=== PATIENT | male | born 1990 | race Caucasian/White ===

== ENCOUNTER 2017-08-06 22:50 | Emergency (ER) | payer SELFPAY ==
[~2017-08-06] VITALS: Ht 172.7 cm; Wt 79.4 kg
[2017-08-06] MEDS ORDERED: ANAPROX DS550 MG PO (23:56)
== END 2017-08-07 00:32 | disposition home or self-care (01) ==
LOC: ED 22:50
DX: S93.492A Sprain of other ligament of left ankle, initial encounter (principal); S70.12XA Contusion of left thigh, initial encounter; S90.02XA Contusion of left ankle, initial encounter; F17.200 Nicotine dependence, unspecified, uncomplicated; V19.9XXA Pedal cyclist (driver) (passenger) injured in unspecified traffic accident, initial encounter; Y93.55 Activity, bike riding; Y92.413 State road as the place of occurrence of the external cause; Y99.9 Unspecified external cause status

== ENCOUNTER 2018-03-26 11:34 | Emergency (ER) | payer MEDICAID ==
[~2018-03-26] VITALS: Ht 172 cm; Wt 68.0 kg
[~2018-03-26 11:34] MED LIST: ANAPROX DS550 MG PO
[2018-03-26] MEDS ORDERED: ANTIBIOTIC28.4 GM T (12:45)
[2018-03-26] MEDS ORDERED: DOXYCYCLINE100 M3 PO (12:45)
== END 2018-03-26 12:49 | disposition home or self-care (01) ==
LOC: ED 11:34
DX: L02.511 Cutaneous abscess of right hand (principal); F17.200 Nicotine dependence, unspecified, uncomplicated; Z79.899 Other long term (current) drug therapy